=== PATIENT | male | born 1935 | race Caucasian/White ===

== ENCOUNTER → 2017-07-02 | Outpatient (CLI) | payer OTHER ==
[2017-07-02 18:30] LABS: ALBUMIN 3.8 gm/dl (3.4-5.0); BLOOD UREA NITROGEN 18 mg/dl (7-18); CALCIUM 9.8 mg/dl (8.5-10.1); CARBON DIOXIDE 32 mmol/L (21-32); CREATININE 0.97 mg/dl (0.60-1.40); GLUCOSE 218 mg/dl (70-99); PHOSPHORUS 2.3 mg/dl (2.5-4.9); POTASSIUM 3.8 mmol/L (3.5-5.1); SODIUM 138 mmol/L (136-145)
[2017-07-03 07:11] LABS: HEMOGLOBIN A1C 8.7 % (4.5-5.6)
== END | disposition home or self-care (01) ==
LOC: C.LABMFLN 15:09
PROVIDERS: ATTEND Family Medicine
DX: E11.9 Type 2 diabetes mellitus without complications (principal); E53.8 Deficiency of other specified B group vitamins